=== PATIENT | male | born 1990 | race African-American/Black ===

== ENCOUNTER 2024-09-02 01:04 | Emergency (ER) | payer OTHER ==
[~2024-09-02] VITALS: Ht 188 cm; Wt 87.0 kg
[2024-09-02 01:22] VITALS: O2SAT 100
[2024-09-02 02:11] LABS: CLARITY URINE CLEAR (CLEAR); COLOR URINE YELLOW (YELLOW); PH URINE 5.5 (4.5-8.0); PROTEIN URINE NEGATIVE (NEGATIVE); SPECIFIC GRAVITY URINE 1.011 (1.005-1.030)
[2024-09-02 02:12] LABS: GLUCOSE URINE NEGATIVE (NEGATIVE); KETONES URINE NEGATIVE (NEGATIVE); LEUKOCYTE ESTERASE URINE NEGATIVE (NEGATIVE); NITRITE URINE NEGATIVE (NEGATIVE); OCCULT BLOOD URINE NEGATIVE (NEGATIVE); UROBILINOGEN URINE 0.2 E.U./dL (0.2-1.0)
[2024-09-02] MEDS: IBUPROFEN 600MG TABLET PO STA (03:30)
[2024-09-02 04:02] LABS: BASOPHILS % 0.6 % (0.0-2.0); EOSINOPHILS % 4.7 % (0.0-5.0); HEMATOCRIT. 43.3 % (42.0-52.0); HEMOGLOBIN. 14.5 g/dL (14.0-18.0); LYMPHOCYTES % 36.4 % (20.0-50.0); MEAN CORPUSCULAR HEMOGLOBIN 28.3 pg (28.0-32.0); MEAN CORPUSCULAR HGB CONC 33.6 g/dL (31.0-37.0); MEAN CORPUSCULAR VOLUME 84.3 fL (80.0-94.0); MEAN PLATELET VOLUME 9.2 fl (7.4-10.4); MONOCYTES % 9.2 % (2.0-8.0); NEUTROPHILS % 49.1 % (40.0-76.0); PLATELET 230 x1000/uL (130-400); RED BLOOD CELL COUNT 5.14 mill/uL (4.7-6.1); RED CELL DISTRIBUTION WIDTH 13.2 % (11.6-14.6); WHITE BLOOD COUNT 6.2 x1000/uL (4.5-11.0)
[2024-09-02 04:08] LABS: CHLORIDE 106 mEq/L (98-107); POTASSIUM 3.8 mEq/L (3.5-5.1); SODIUM 140 mEq/L (136-145)
[2024-09-02 04:09] LABS: CALCIUM 9.1 mg/dL (8.7-10.4); CARBON DIOXIDE 25 mEq/L (21-32)
[2024-09-02 04:14] LABS: CREATININE 0.9 mg/dL (0.6-1.3); GLUCOSE 98 mg/dL (70-105); UREA NITROGEN BLOOD 8 mg/dL (9-23)
[2024-09-02] MEDS: IBUPROFEN 600MG TABLET PO NR (05:15)
[2024-09-02] MEDS ORDERED: NAPR-681 PO (05:33)
[2024-09-02] MEDS ORDERED: CYCL5TAB3 MT (05:33)
[2024-09-02 05:42] VITALS: BP 123/84; PULSE 87; RESP 18; TEMP 36.66960; O2SAT 100
== END 2024-09-02 05:42 | disposition home or self-care (01) ==
LOC: ER 01:24
DX: R10.31 Right lower quadrant pain (principal); M54.59 Other low back pain
CPT/HCPCS: 36415; 76770; 80048; 81003; 85025; 99284